=== PATIENT | male | born 1930 | race Caucasian/White ===

== ENCOUNTER → 2018-09-23 | Outpatient (CLI) | payer MEDICARE ==
--- NOTE | 2018-09-23 17:18 | MR ---
EXAMINATION TYPE: MR brain wo/w con DATE OF EXAM: 09/23/2018 COMPARISON: Prior MR brain 05/03/2011 HISTORY: Memory loss TECHNIQUE: Multiplanar, multisequence images of the brain and brainstem is performed without and with IV contras t, utilizing 7 mL intravenous Gadavist . Fast brain protocol utilized due to patient's condition. FINDINGS: Diffusion weighted images demonstrate no evidence of a recent infarct or other diffusion ab normality. There is no extra-axial fluid collection. There has been progression in confluent and sc attered hyperintensity in the periventricular, subcortical and juxtacortical white matter as compared to prior exam. There are too numerous to count lesions present. The ventricular system and cisternal spaces are normal in size and appearance. The brain volume is age appropriate. Midline structures demonstrate normal morphology. The craniocervical junction appears within normal limits. Post contrast images demonstrate no abnormal enhancement. The dural venous sinuses appear pa tent. The visualized sinuses are remarkable for mucoperiosteal thickening in the ethmoid air cells, m axillary sinus and frontal and sphenoid sinuses. And the globes are intact. IMPRESSION: There is progression in white matter signal changes. Findings may be due to chronic small vessel ischemia.
[2018-09-24 03:09] LABS: Folate, Serum 12.6 ng/mL
[2018-09-24 10:06] LABS: Lyme IgG/IgM 0.1 Index
== END | disposition home or self-care (01) ==
LOC: RADMRIMAIN 15:42
PROVIDERS: ATTEND Psychiatry & Neurology Neurology
DX: R90.89 Other abnormal findings on diagnostic imaging of central nervous system (principal); R41.3 Other amnesia; C71.9 Malignant neoplasm of brain, unspecified
CPT/HCPCS: 82746; 86618; 70553; A9585; 82565; 84520

== ENCOUNTER 2019-11-14 15:53 | Observation (INO) | payer MEDICARE, BC ==
--- NOTE | 2019-11-14 16:32 | ED ---
General Adult HPI - General Chief complaint: Syncope Stated complaint: fall Time Seen by Provider: 11/14/19 16:02 Source: patient, family Mode of arrival: ambulatory Limitations: physical limitation - History of Present Illness Initial comments: Dictation was produced using [employer] dictation software. please excuse any grammatical, word or spelling errors. This patient was cared for during a federal and state declared state of emergency secondary to Covid 19 Chief Complaint: 89-year-old male past medical history of hypertension, dementia presents with syncope. History of Present Illness: An 89-year-old male presents after episode of syncope. Patient had one such episode in the past of syncope. Patient states that he was well prior with neighbors when he started to feel lightheaded. He went to sit down. Next thing he remembers he is woken up by his friends. Patient states he went for a second walk today when he usually only goes for long walk. Patient has any trauma. He was unconscious for less than 1 minute. Patient was not noted to be confused. Patient states he feels well right now. He has no chest pain shortness of breath at this time. He had one such episode of syncope several years ago according to the daughter. Daughter is concerned about his hemoglobin levels because he has history of anemia. The ROS documented in this emergency department record has been reviewed and confirmed by me. Those systems with pertinent positive or negative responses have been documented in the HPI. All other systems are other negative and/or noncontributory. PHYSICAL EXAM: General Impression: Alert and oriented x3, not in acute distress HEENT: Normocephalic atraumatic, extra-ocular movements intact, pupils equal and reactive to light bilaterally, mucous membranes moist. Cardiovascular: Heart regular rate and rhythm Chest: Able to complete full sentences, no retractions, no tachypnea Abdomen: Bowel sounds present, abdomen soft, non-tender, non-distended, no organomegaly Musculoskeletal: Pulses present and equal in all extremities, no peripheral edema Motor: no focal deficits noted Neurological: CN II-XII grossly intact, no focal motor or sensory deficits noted Skin: Intact with no visualized rashes Psych: Normal affect and mood ED course: 89-year-old male presents with syncope. Vital signs upon arrival shows blood pressure 187/70, respiratory signs within acceptable limits. Patient is well-appearing at bedside. Daughter reports that he does take Xarelto and multiple antihypertensive medications. Laboratory evaluation obtained. CBC unremarkable. Coag panel unremarkable. Metabolic panel shows sodium 129. Patient hypocalcemia with the ionized calcium of 4.4. Considering patient's lab abnormalities believe the patient has metabolic cause for his syncope. Patient given intravenous fluids, and calcium. Patient be admitted with consultation to cardiology. Patient will be admitted to Dr. Barry's service. EKG interpretation: Ventricular rate 63, normal sinus rhythm,. Interval 200, QRS 108, QTC 427. No MA prolongation, no QTC prolongation, no ST or T-wave changes noted. Overall, this EKG is unremarkable - Related Data Home Medications Medication Instructions Recorded Confirmed Aspirin 81 mg PO DAILY 01/02/15 01/02/15 Allergies Allergy/AdvReac Type Severity Reaction Status Date / Time No Known Allergies Allergy Verified 11/14/19 16:00 Review of Systems ROS Statement: Those systems with pertinent positive or pertinent negative responses have been documented in the HPI. ROS Other: All systems not noted in ROS Statement are negative. Past Medical History Past Medical History: Dementia, Hypertension Additional Past Medical History / Comment(s): DVT History of Any Multi-Drug Resistant Organisms: None Reported Past Surgical History: Hernia Repair Past Psychological History: No Psychological Hx Reported Smoking Status: Never smoker Past Alcohol Use History: None Reported Past Drug Use History: None Reported General Exam Limitations: physical limitation Course Vital Signs 11/14/19 15:57 Temperature 98.2 F Pulse Rate 71 Respiratory 18 Rate Blood Pressure 187/70 O2 Sat by Pulse 98 Oximetry Medical Decision Making - Lab Data Result diagrams: 11/14/19 16:45 11/14/19 16:45 Lab Results 11/14/19 11/14/19 11/14/19 Range/Units 16:45 16:45 16:45 WBC 8.1 (3.8-10.6) k/uL RBC 4.07 L (4.30-5.90) m/uL Hgb 12.4 L (13.0-17.5) gm/dL Hct 37.3 L (39.0-53.0) % MCV 91.7 (80.0-100.0) fL MCH 30.5 (25.0-35.0) pg MCHC 33.3 (31.0-37.0) g/dL RDW 13.2 (11.5-15.5) % Plt Count 222 (150-450) k/uL Neutrophils % 82 % Lymphocytes % 10 % Monocytes % 4 % Eosinophils % 2 % Basophils % 1 % Neutrophils # 6.7 (1.3-7.7) k/uL Lymphocytes # 0.8 L (1.0-4.8) k/uL Monocytes # 0.3 (0-1.0) k/uL Eosinophils # 0.1 (0-0.7) k/uL Basophils # 0.0 (0-0.2) k/uL PT 11.7 (9.0-12.0) sec INR 1.2 H (<1.2) APTT 29.9 (22.0-30.0) sec Sodium 129 L (137-145) mmol/L Potassium 5.0 (3.5-5.1) mmol/L Chloride 97 L (98-107) mmol/L Carbon Dioxide 23 (22-30) mmol/L Anion Gap 9 mmol/L BUN 16 (9-20) mg/dL Creatinine 0.65 L (0.66-1.25) mg/dL Est GFR (CKD-EPI)AfAm >90 (>60 ml/min/1.73 sqM) Est GFR (CKD-EPI)NonAf 88 (>60 ml/min/1.73 sqM) Glucose 125 H (74-99) mg/dL POC Glucose (mg/dL) (75-99) mg/dL POC Glu Manager Division ID Plasma Lactic Acid Andrade (0.7-2.0) mmol/L Calcium 8.8 (8.4-10.2) mg/dL Ionized Calcium Esperanza 4.4 L (4.5-5.3) mg/dL Magnesium 1.9 (1.6-2.3) mg/dL Total Bilirubin 0.9 (0.2-1.3) mg/dL AST 41 (17-59) U/L ALT 15 (4-49) U/L Alkaline Phosphatase 39 (38-126) U/L Troponin I (0.000-0.034) ng/mL Total Protein 7.1 (6.3-8.2) g/dL Albumin 4.2 (3.5-5.0) g/dL 11/14/19 11/14/19 11/14/19 Range/Units 16:45 16:45 17:05 WBC (3.8-10.6) k/uL RBC (4.30-5.90) m/uL Hgb (13.0-17.5) gm/dL Hct (39.0-53.0) % MCV (80.0-100.0) fL MCH (25.0-35.0) pg MCHC (31.0-37.0) g/dL RDW (11.5-15.5) % Plt Count (150-450) k/uL Neutrophils % % Lymphocytes % % Monocytes % % Eosinophils % % Basophils % % Neutrophils # (1.3-7.7) k/uL Lymphocytes # (1.0-4.8) k/uL Monocytes # (0-1.0) k/uL Eosinophils # (0-0.7) k/uL Basophils # (0-0.2) k/uL PT (9.0-12.0) sec INR (<1.2) APTT (22.0-30.0) sec Sodium (137-145) mmol/L Potassium (3.5-5.1) mmol/L Chloride (98-107) mmol/L Carbon Dioxide (22-30) mmol/L Anion Gap mmol/L BUN (9-20) mg/dL Creatinine (0.66-1.25) mg/dL Est GFR (CKD-EPI)AfAm (>60 ml/min/1.73 sqM) Est GFR (CKD-EPI)NonAf (>60 ml/min/1.73 sqM) Glucose (74-99) mg/dL POC Glucose (mg/dL) 123 H (75-99) mg/dL POC Glu Manager Division ID Nena Lee Plasma Lactic Acid Andrade 1.3 (0.7-2.0) mmol/L Calcium (8.4-10.2) mg/dL Ionized Calcium Esperanza (4.5-5.3) mg/dL Magnesium (1.6-2.3) mg/dL Total Bilirubin (0.2-1.3) mg/dL AST (17-59) U/L ALT (4-49) U/L Alkaline Phosphatase (38-126) U/L Troponin I <0.012 (0.000-0.034) ng/mL Total Protein (6.3-8.2) g/dL Albumin (3.5-5.0) g/dL Disposition Clinical Impression: Syncope Disposition: ADMITTED IP TO THIS HOSP Condition: Fair Referrals: Sharlene Dawn MD [Primary Care Provider] - 1-2 days Decision Time: 18:13
[2019-11-14 16:56] LABS: Basophils % (A) 1 %; Eosinophils # (A) 0.1 k/uL (0-0.7); Eosinophils % (A) 2 %; HCT 37.3 % (39.0-53.0); HGB 12.4 gm/dL (13.0-17.5); Lymphocytes # (A) 0.8 k/uL (1.0-4.8); Lymphocytes % (A) 10 %; MCH 30.5 pg (25.0-35.0); MCHC 33.3 g/dL (31.0-37.0); MCV 91.7 fL (80.0-100.0); Mean Platelet Volume 7.3; Monocytes # (A) 0.3 k/uL (0-1.0); Monocytes % (A) 4 %; Neutrophils # (A) 6.7 k/uL (1.3-7.7); Neutrophils % (A) 82 %; Platelet Count 222 k/uL (150-450); RBC 4.07 m/uL (4.30-5.90); RDW 13.2 % (11.5-15.5); WBC 8.1 k/uL (3.8-10.6)
[2019-11-14 17:01] LABS: Ionized Calcium 4.4 mg/dL (4.5-5.3)
[2019-11-14 17:10] LABS: ALT 15 U/L (4-49); AST 41 U/L (17-59); African American GFR (CKD) >90 (>60 ml/min/1.73 sqM); Albumin 4.2 g/dL (3.5-5.0); Alkaline Phosphatase 39 U/L (38-126); Anion Gap 9 mmol/L; Blood Urea Nitrogen 16 mg/dL (9-20); Calcium 8.8 mg/dL (8.4-10.2); Carbon Dioxide 23 mmol/L (22-30); Chloride 97 mmol/L (98-107); Glucose 125 mg/dL (74-99); Magnesium 1.9 mg/dL (1.6-2.3); Non-African American GFR(CKD) 88 (>60 ml/min/1.73 sqM); Sodium 129 mmol/L (137-145); Total Bilirubin 0.9 mg/dL (0.2-1.3); Total Protein 7.1 g/dL (6.3-8.2)
--- NOTE | 2019-11-14 17:15 | XR ---
EXAMINATION TYPE: XR chest 2V DATE OF EXAM: 11/14/2019 COMPARISON: None HISTORY: 89-year-old male with syncope TECHNIQUE: PA and lateral views FINDINGS: Heart normal size. Mild elongation thoracic aorta. Tiny calcified granulomas left apex. Mild hyperinf lation. No consolidation or pleural effusion seen. IMPRESSION: COPD. No acute cardiopulmonary process.
[2019-11-14 17:23] LABS: INR 1.2 (<1.2); Partial Thromboplastin Time 29.9 sec (22.0-30.0); Prothrombin Time 11.7 sec (9.0-12.0)
[2019-11-14 17:25] LABS: Glucose,Whole Blood 123 mg/dL (75-99)
[2019-11-14] MEDS ORDERED: ACETAMINOPHEN TAB 325 MG TAB PO PRN (18:09)
[2019-11-14] MEDS ORDERED: ONDANSETRON 4 MG/2 ML VIAL IVP PRN (18:09)
[2019-11-14] MEDS ORDERED: NALOXONE 0.4 MG/ML 1 ML VIAL IV PRN (18:09)
[2019-11-14] MEDS ORDERED: CALCIUM GLUCONATE 1 GM in SODIUM CHLORIDE 0.9% 100 ML IVPB ONE (18:11)
[2019-11-14] MEDS: SODIUM CHLORIDE 0.9% 1,000 ML IV SCH (18:32)
[2019-11-14] MEDS ORDERED: LABETALOL 5 MG/ML VIAL MDV IVP STA (18:52)
--- NOTE | 2019-11-14 20:03 | CT ---
EXAMINATION TYPE: CT brain wo con DATE OF EXAM: 11/14/2019 COMPARISON: Correlation MRI 09/23/2018 HISTORY: 89-year-old male syncope TECHNIQUE: Examination was done in axial plane without intravenous contrast. Coronal and sagittal r econstructions performed. CT DLP: 1141.4 mGycm Automated exposure control for dose reduction was used. FINDINGS: There is no evidence of acute intracranial hemorrhage, acute ischemic changes, mass, mass-effect, or extra-axial fluid collection. There is no effacement of cerebral sulci or basal subarachnoid cister ns. There is no hydrocephalus. There is no midline shift. Berrios-white matter distinction is preserv ed. Moderate confluent white matter hypodensities in both cerebral hemispheres. Old lacunar infarct right basal ganglia. Other scattered calcifications within the bilateral carotid siphons and proximal V4 v ertebral arteries. Partially empty sella. Orbits and globes are intact. Mastoid air cells are well pneumatized. Moderate to severe mucosal thic kening with some additional frothy opacification in the left sphenoid sinus. Moderate mucosal thicken ing along the posterior farley of frontal sinuses. IMPRESSION: 1. Moderate confluent changes of chronic small vessel ischemic disease. Otherwise, no acute intracran ial abnormality seen. 2. Possible acute on chronic left sphenoid sinus disease. Clinically correlate.
[2019-11-14] MEDS: DOXAZOSIN 4 MG TAB PO SCH (23:39)
[2019-11-15 06:33] LABS: Basophils % (A) 1 %; Eosinophils # (A) 0.2 k/uL (0-0.7); Eosinophils % (A) 3 %; HCT 33.7 % (39.0-53.0); Lymphocytes # (A) 1.3 k/uL (1.0-4.8); Lymphocytes % (A) 22 %; MCH 30.1 pg (25.0-35.0); MCHC 32.5 g/dL (31.0-37.0); MCV 92.7 fL (80.0-100.0); Mean Platelet Volume 7.3; Monocytes # (A) 0.4 k/uL (0-1.0); Monocytes % (A) 7 %; Neutrophils # (A) 3.8 k/uL (1.3-7.7); Neutrophils % (A) 64 %; Platelet Count 215 k/uL (150-450); RBC 3.64 m/uL (4.30-5.90); RDW 13.1 % (11.5-15.5); WBC 5.8 k/uL (3.8-10.6)
[2019-11-15 06:54] LABS: ALT 12 U/L (4-49); AST 22 U/L (17-59); African American GFR (CKD) >90 (>60 ml/min/1.73 sqM); Albumin 3.5 g/dL (3.5-5.0); Alkaline Phosphatase 27 U/L (38-126); Anion Gap 8 mmol/L; Blood Urea Nitrogen 12 mg/dL (9-20); Calcium 8.6 mg/dL (8.4-10.2); Carbon Dioxide 27 mmol/L (22-30); Chloride 97 mmol/L (98-107); Glucose 88 mg/dL (74-99); Non-African American GFR(CKD) 88 (>60 ml/min/1.73 sqM); Potassium 3.8 mmol/L (3.5-5.1); Sodium 132 mmol/L (137-145); Total Bilirubin 0.4 mg/dL (0.2-1.3); Total Protein 6.1 g/dL (6.3-8.2)
[2019-11-15] MEDS: MEMANTINE 10 MG TAB PO SCH (07:51)
[2019-11-15] MEDS: SODIUM CHLORIDE 0.9% 1,000 ML IV SCH (07:52)
[2019-11-15] MEDS: DONEPEZIL 5 MG TAB PO SCH (07:52)
[2019-11-15] MEDS: RIVAROXABAN 20 MG TAB PO SCH (07:52)
[2019-11-15] MEDS ORDERED: IRON PO SCH (09:00)
[2019-11-15] MEDS ORDERED: VITAMIN D3 PO SCH (09:00)
--- NOTE | 2019-11-15 11:34 | P.CRDCN ---
History of Present Illness Consult date: 11/15/19 Consult reason: other (syncope) History of present illness: This is an 89-year-old male. He denies having any cardiac history does not follow with a dewaterer operator. He has history of DVT, hypertension, anemia, dementia. Patient states that he took a walk outside and then went for second walk with his neighbors. He had to sit down at a picnic table and ended up passing out briefly. EMS was called and he was brought into [facility] emergency center for evaluation. He denies ever having a history of syncope in the past. He denies having any chest pain, shortness of breath and no lightheadedness or dizziness with this episode. He denies any abdominal symptoms of nausea or vomiting. EKG was a sinus rhythm with no acute ST-T wave changes. Initial blood pressure 187/70 with heart rate of 71. Hemoglobin 12.4. Sodium 129, potassium 5.0, chloride 97, CO2 23, BUN 16 and creatinine 0.65 blood sugar 125. Troponin 0.012. Chest x-ray reveals COPD area acute cardio pulmonary process. CAT scan of the brain showed moderate confluent changes of chronic small vessel ischemic disease. No acute intracranial abnormality. Possible sphenoid sinus disease. At the time of my evaluation: Review Of Systems: Constitutional: No fever, no chills, no night sweats. No weight change. No weakness, fatigue or lethargy. No daytime sleepiness. EENT: No headache. No blurred vision or double vision, no loss of vision. No loss of Hearing, no ringing in the ears, no dizziness. No nasal drainage or congestion. No epistaxis. No sore throat. Lungs: No shortness of breath, cough, no sputum production. No wheezing. Cardiovascular: No chest pain, no lower extremity edema. No palpitations. No paroxysmal nocturnal dyspnea. No orthopnea. No lightheadedness or dizziness. No syncopal episodes. Abdominal: No abdominal pain. No nausea, vomiting. No diarrhea. No constipation. No bloody or tarry stools.. No loss of appetite. Genitourinary: No dysuria, increased frequency, urgency. No urinary retention. Musculoskeletal: No myalgias. No muscle weakness, no gait dysfunction, no frequent falls. No back pain. No neck pain. Integumentary: No wounds, no lesions. No rash or pruritus. No unusual bruising. No change in hair or nails. Neurologic: No aphasia. No facial droop. No change in mentation. No head injury. No headache. No paralysis. No paresthesia. Psychiatric: No depression. No anxiety. No mood swings. Endocrine: No abnormal blood sugars. No weight change. No excessive sweating or thirst. No cold intolerance. No weight change. Gen: This is an 89-year-old male. Patient is sitting in recliner and appears to be comfortable and in no acute distress. VS: Afebrile, heart rate 55, blood pressure 187/64, pulse ox 96% on room air. Heart rate has been running mostly in the 50s. Patient has noted to have very brief pauses on arts administrator. HEENT: Head is atraumatic, normocephalic. Pupils equal, round. Sclerae is anicteric. NECK: Supple. No JVD. No lymphadenopathy. No thyromegaly. LUNGS: Clear to auscultation. No wheezes or rhonchi. No intercostal retractions. HEART: Regular rate and rhythm. No murmur. ABDOMEN: Soft. Bowel sounds are present. No masses. No tenderness. EXTREMITIES: No pedal edema. No calf tenderness. NEUROLOGICAL: Patient is awake, alert and oriented x3. Cranial nerves 2 through 12 are grossly intact. Assessment: Syncopal episode of unclear etiology, possibly secondary to dehydration Hypertension Chronic anemia History DVT Dementia Plan: Obtain 2-D echocardiogram and Doppler study to assess cardiac structure and function Carotid ultrasound study Discontinue hydrochlorothiazide and start patient on Norvasc 5 mg twice daily Increase oral fluid intake Check orthostatic vital signs Obtain TSH and free T4 Continue Xarelto Continue arts administrator overnight and possible discharge tomorrow Further recommendations based on patient's clinical course Thank you kindly for this consultation Nurse practitioner note has been reviewed, I agree with documented findings and plan of care. Patient was seen and examined. Past Medical History Past Medical History: Dementia, Hypertension Additional Past Medical History / Comment(s): DVT History of Any Multi-Drug Resistant Organisms: None Reported Past Surgical History: Hernia Repair Past Anesthesia/Blood Transfusion Reactions: No Reported Reaction Past Psychological History: No Psychological Hx Reported Smoking Status: Never smoker Past Alcohol Use History: Daily Additional Past Alcohol Use History / Comment(s): drinls 1 beer a day. Past Drug Use History: None Reported Medications and Allergies Home Medications Medication Instructions Recorded Confirmed Type Donepezil [Aricept] 5 mg PO QAM 11/14/19 11/14/19 History Doxazosin [Cardura] 10 mg PO HS 11/14/19 11/14/19 History Hydrochlorothiazide 12.5 mg PO QAM 11/14/19 11/14/19 History Iron (Unknown Dose) 1 tab PO QAM 11/14/19 11/14/19 History Memantine [Namenda] 10 mg PO QAM 11/14/19 11/14/19 History Rivaroxaban [Xarelto] 20 mg PO QAM 11/14/19 11/14/19 History Vitamin D3 (Unknown Dose) 1 tab PO QAM 11/14/19 11/14/19 History Allergies Allergy/AdvReac Type Severity Reaction Status Date / Time No Known Allergies Allergy Verified 11/14/19 18:34 Physical Exam Vitals: Vital Signs Temp Pulse Pulse Resp BP BP Pulse Ox 11/15/19 06:13 98.4 F 55 L 12 187/64 96 11/14/19 22:32 97.9 F 67 16 189/71 96 11/14/19 20:05 98.1 F 59 L 19 153/58 98 11/14/19 19:33 165/71 11/14/19 19:08 67 18 166/74 11/14/19 19:00 74 18 205/89 11/14/19 18:38 97.3 F L 70 18 205/89 97 11/14/19 15:57 98.2 F 71 18 187/70 98 Intake and Output 11/14/19 11/15/19 11/15/19 22:59 06:59 14:59 Intake Total 560 Balance 560 Intake: Intake, IV Titration 560 Amount Sodium Chloride 0.9% 1, 560 000 ml @ 70 mls/hr IV . [id number] [facility] Rx#:[id number] Other: Voiding Method Toilet # Voids 2 1 Weight 72.575 kg Results 11/15/19 05:58 11/15/19 05:58 Cardiac Enzymes 11/14/19 11/14/19 11/15/19 Range/Units 16:45 16:45 05:58 AST 41 22 (17-59) U/L Troponin I <0.012 (0.000-0.034) ng/mL Coagulation 11/14/19 Range/Units 16:45 PT 11.7 (9.0-12.0) sec APTT 29.9 (22.0-30.0) sec CBC 11/14/19 11/15/19 Range/Units 16:45 05:58 WBC 8.1 5.8 (3.8-10.6) k/uL RBC 4.07 L 3.64 L (4.30-5.90) m/uL Hgb 12.4 L 11.0 L (13.0-17.5) gm/dL Hct 37.3 L 33.7 L (39.0-53.0) % Plt Count 222 215 (150-450) k/uL Comprehensive Metabolic Panel 11/14/19 11/15/19 Range/Units 16:45 05:58 Sodium 129 L 132 L (137-145) mmol/L Potassium 5.0 3.8 (3.5-5.1) mmol/L Chloride 97 L 97 L (98-107) mmol/L Carbon Dioxide 23 27 (22-30) mmol/L BUN 16 12 (9-20) mg/dL Creatinine 0.65 L 0.64 L (0.66-1.25) mg/dL Glucose 125 H 88 (74-99) mg/dL Calcium 8.8 8.6 (8.4-10.2) mg/dL AST 41 22 (17-59) U/L ALT 15 12 (4-49) U/L Alkaline Phosphatase 39 27 L (38-126) U/L Total Protein 7.1 6.1 L (6.3-8.2) g/dL Albumin 4.2 3.5 (3.5-5.0) g/dL Current Medications Generic Name Dose Route Start Last Admin Trade Name Freq PRN Reason Stop Dose Admin Acetaminophen 650 mg 11/14/19 18:09 Tylenol Tab PO Q6HR PRN Mild Pain or Fever > 100.5 Donepezil HCl 5 mg 11/15/19 09:00 11/15/19 07:52 Aricept PO 5 mg QAM ANGELIKA Administration Doxazosin Mesylate 10 mg 11/14/19 22:45 11/14/19 23:39 Cardura PO 10 mg HS ANGELIKA Administration Sodium Chloride 1,000 mls @ 70 mls/hr 11/14/19 18:15 11/15/19 07:52 Saline 0.9% IV Not Given .[id number] ANGELIKA Memantine 10 mg 11/15/19 09:00 11/15/19 07:51 Namenda PO 10 mg QAM ANGELIKA Administration Naloxone HCl 0.2 mg 11/14/19 18:09 Narcan IV Q2M PRN Opioid Reversal Ondansetron HCl 4 mg 11/14/19 18:09 Zofran IVP Q8HR PRN Nausea And Vomiting Rivaroxaban 20 mg 11/15/19 09:00 11/15/19 07:52 Xarelto PO 20 mg QAM ANGELIKA Administration Intake and Output 11/14/19 11/15/19 11/15/19 22:59 06:59 14:59 Intake Total 560 Balance 560 Intake: Intake, IV Titration 560 Amount Sodium Chloride 0.9% 1, 560 000 ml @ 70 mls/hr IV . [id number] ANGELIKA Rx#:[id number] Other: Voiding Method Toilet # Voids 2 1 Weight 72.575 kg 11/15/19 05:58 11/15/19 05:58
--- NOTE | 2019-11-15 11:49 | US ---
EXAMINATION TYPE: US carotid duplex BILAT DATE OF EXAM: 11/15/2019 COMPARISON: NONE CLINICAL HISTORY: syncope. syncope EXAM MEASUREMENTS: RIGHT: Peak Systolic Velocity (PSV) cm/sec ----- Right CCA: 54.0 ----- Right ICA: 232.4 ----- Right ECA: 214.4 ICA/CCA ratio: 4.3 RIGHT: End Diastole cm/sec ----- Right CCA: 10.4 ----- Right ICA: 15.8 ----- Right ECA: 0.0 LEFT: Peak Systolic Velocity (PSV) cm/sec ----- Left CCA: 95.1 ----- Left ICA: 108.3 ----- Left ECA: 429.0 ICA/CCA ratio: 1.1 LEFT: End Diastole cm/sec ----- Left CCA: 14.4 ----- Left ICA: 21.0 ----- Left ECA: 0.0 VERTEBRALS (direction of flow): Right Vertebral: Antegrade Left Vertebral: Antegrade Rhythm: Normal Severe plaque noted bilateral bifurcations. Increased velocities right ICA and bilateral ECA's IMPRESSION: 1. 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 2. ELEVATED FLOW, BOTH ECAS. Criteria for Assigning % of Stenosis / Diameter reduction (Estimation based on the indirect measurements of the internal carotid artery velocities (ICA PSV). 1. Normal (no stenosis)=ICA PSV < 125 cm/s: ratio < 2.0: ICA EDV<40 cm/s. 2. Less than 50% stenosis=ICA PSV < 125 cm/s: ratio < 2.0: ICA EDV<40 cm/s. 3. 50 to 69% stenosis=ICA PSV of 125 to 230 cm/s: ration 2.0 ? 4.0: ICA EDV 40-100 cm/s. 4. Greater than 70% stenosis to near occlusion= ICA PSV > 230 cm/s: ratio > 4.0: ICA EDV > 100 cm/s. 5. Near occlusion= ICA PSV velocities may be low or undetectable: variable ratio and ICA EDV. 6. Total occlusion=unable to detect flow.
[2019-11-15] MEDS: amLODIPine 5 MG TAB PO SCH ×2 (12:56→20:51)
--- NOTE | 2019-11-15 14:00 | ECHOF ---
Referral Reason:syncope MEASUREMENTS -------- HEIGHT: 167.6 cm WEIGHT: 72.6 kg BP: IVSd: 1.2 cm (0.6 - 1.1) LVIDd: 4.1 cm (3.9 - 5.3) LVPWd: 1.2 cm (0.6 - 1.1) IVSs: 1.6 cm LVIDs: 1.6 cm LVPWs: 1.8 cm LAESV Index (A-L): 24.10 ml/m Ao Diam: 2.8 cm (2.0 - 3.7) AV Cusp: 1.6 cm (1.5 - 2.6) LA Diam: 3.5 cm (2.7 - 3.8) MV EXCURSION: 14.924 mm (> 18.000) MV EF SLOPE: 58 mm/s (70 - 150) EPSS: 0.5 cm MV E Baljinder: 0.74 m/s MV DecT: 249 ms MV A Baljinder: 1.11 m/s MV E/A Ratio: 0.67 AR PHT: 1202 ms RAP: 5.00 mmHg RVSP: 26.04 mmHg FINDINGS -------- Sinus rhythm. This was a technically good study. The left ventricular size is normal. There is mild concentric left ventricular hypertrophy. Overa ll left ventricular systolic function is normal with, an EF between 55 - 60 %. The diastolic fillin g pattern is normal for the age of the patient 10.70. The right ventricle is normal in size. The left atrial size is normal. Normal LA size by volume 22+/-6 ml/m2. The right atrial size is normal. Aortic valve is trileaflet and is mildly thickened. Trace amount of aortic regurgitation. The mitral valve is normal. There is trace mitral regurgitation. The tricuspid valve appears structurally normal. Trace tricuspid regurgitation present. Right joel tricular systolic pressure is normal at < 35 mmHg. There is no pulmonic regurgitation present. The aortic root size is normal. Normal inferior vena cava with normal inspiratory collapse consistent with estimated right atrial pre ssure of 5 mmHg. There is no pericardial effusion. CONCLUSIONS -------- 1. Sinus rhythm. 2. This was a technically good study. 3. The left ventricular size is normal. 4. There is mild concentric left ventricular hypertrophy. 5. Overall left ventricular systolic function is normal with, an EF between 55 - 60 %. 6. The diastolic filling pattern is normal for the age of the patient 10.70 7. The right ventricle is normal in size. 8. The left atrial size is normal. 9. Normal LA size by volume 22+/-6 ml/m2. 10. The right atrial size is normal. 11. Aortic valve is trileaflet and is mildly thickened. 12. Trace amount of aortic regurgitation. 13. The mitral valve is normal. 14. There is trace mitral regurgitation. 15. The tricuspid valve appears structurally normal. 16. Trace tricuspid regurgitation present. 17. Right ventricular systolic pressure is normal at < 35 mmHg. 18. There is no pulmonic regurgitation present. 19. The aortic root size is normal. 20. Normal inferior vena cava with normal inspiratory collapse consistent with estimated right atrial pressure of 5 mmHg. 21. There is no pericardial effusion. CAKE PRESS OPERATOR: Kaylen Gupta RDCS
--- NOTE | 2019-11-15 14:11 | P.HPIM ---
History of Present Illness H&P Date: 11/15/19 Giancarlo Gore is an 89-year-old male who presented to [facility] after having a syncopal episode patient states that he went for a walk with a friend he was sitting at the picnic table when he suddenly lost consciousness he estimates that he was unconscious for about 1 minute patient denies any symptoms of dizziness or lightheadedness chest pain or shortness of breath before or after the syncopal episode. EMS were called and patient was brought in to [facility] emergency room, he was evaluated in the emergency room, his temperature was 98.2 pulse 71 respiration 18 blood pressure 187/70 pulse ox was 98% on room air, his labs were significant for sodium of 129, glucose 125 otherwise no significant abnormality EKG was done and revealed a normal sinus rhythm with a heart rate of 63 without any abnormality. Patient was admitted to telemetry floor, echocardiogram and carotid Doppler were ordered, cardiology consultation was requested. Patient has known history of hypertension he has a previous history of DVT and history of dementia he denies any history of cardiac disease or history of syncope in the past. Past Medical History Past Medical History: Dementia, Hypertension Additional Past Medical History / Comment(s): DVT History of Any Multi-Drug Resistant Organisms: None Reported Past Surgical History: Hernia Repair Past Anesthesia/Blood Transfusion Reactions: No Reported Reaction Past Psychological History: No Psychological Hx Reported Smoking Status: Never smoker Past Alcohol Use History: Daily Additional Past Alcohol Use History / Comment(s): drinls 1 beer a day. Past Drug Use History: None Reported Medications and Allergies Home Medications Medication Instructions Recorded Confirmed Type Donepezil [Aricept] 5 mg PO QAM 11/14/19 11/14/19 History Doxazosin [Cardura] 10 mg PO HS 11/14/19 11/14/19 History Hydrochlorothiazide 12.5 mg PO QAM 11/14/19 11/14/19 History Iron (Unknown Dose) 1 tab PO QAM 11/14/19 11/14/19 History Memantine [Namenda] 10 mg PO QAM 11/14/19 11/14/19 History Rivaroxaban [Xarelto] 20 mg PO QAM 11/14/19 11/14/19 History Vitamin D3 (Unknown Dose) 1 tab PO QAM 11/14/19 11/14/19 History Allergies Allergy/AdvReac Type Severity Reaction Status Date / Time No Known Allergies Allergy Verified 11/14/19 18:34 Physical Exam Vitals: Vital Signs Temp Pulse Pulse Resp BP BP Pulse Ox 11/15/19 06:13 98.4 F 55 L 12 187/64 96 11/14/19 22:32 97.9 F 67 16 189/71 96 11/14/19 20:05 98.1 F 59 L 19 153/58 98 11/14/19 19:33 165/71 11/14/19 19:08 67 18 166/74 11/14/19 19:00 74 18 205/89 11/14/19 18:38 97.3 F L 70 18 205/89 97 11/14/19 15:57 98.2 F 71 18 187/70 98 Intake and Output 11/14/19 11/15/19 11/15/19 22:59 06:59 14:59 Intake Total 560 Balance 560 Intake: Intake, IV Titration 560 Amount Sodium Chloride 0.9% 1, 560 000 ml @ 70 mls/hr IV . [id number] [facility] Rx#:[id number] Other: Voiding Method Toilet # Voids 2 1 1 Weight 72.575 kg In general patient is alert and oriented 3 in no apparent distress HEENT head normocephalic and atraumatic Neck is supple no JVD no goiter no lymphadenopathy Chest exam reveals a few scattered rhonchi no wheezing Cardiac exam reveals regular heart sounds no gallops no murmurs Abdomen is soft nontender no organomegaly with normal bowel sounds Extremity exam reveals no edema no cyanosis or clubbing Neurological examination reveals no gross focal deficit Results CBC & Chem 7: 11/15/19 05:58 11/15/19 05:58 Labs: Abnormal Lab Results - Last 24 Hours (Table) 11/14/19 11/14/19 11/14/19 Range/Units 16:45 16:45 16:45 RBC 4.07 L (4.30-5.90) m/uL Hgb 12.4 L (13.0-17.5) gm/dL Hct 37.3 L (39.0-53.0) % Lymphocytes # 0.8 L (1.0-4.8) k/uL INR 1.2 H (<1.2) Sodium 129 L (137-145) mmol/L Chloride 97 L (98-107) mmol/L Creatinine 0.65 L (0.66-1.25) mg/dL Glucose 125 H (74-99) mg/dL POC Glucose (mg/dL) (75-99) mg/dL Ionized Calcium Esperanza 4.4 L (4.5-5.3) mg/dL Alkaline Phosphatase (38-126) U/L Total Protein (6.3-8.2) g/dL 11/14/19 11/15/19 11/15/19 Range/Units 17:05 05:58 05:58 RBC 3.64 L (4.30-5.90) m/uL Hgb 11.0 L (13.0-17.5) gm/dL Hct 33.7 L (39.0-53.0) % Lymphocytes # (1.0-4.8) k/uL INR (<1.2) Sodium 132 L (137-145) mmol/L Chloride 97 L (98-107) mmol/L Creatinine 0.64 L (0.66-1.25) mg/dL Glucose (74-99) mg/dL POC Glucose (mg/dL) 123 H (75-99) mg/dL Ionized Calcium Esperanza (4.5-5.3) mg/dL Alkaline Phosphatase 27 L (38-126) U/L Total Protein 6.1 L (6.3-8.2) g/dL Thrombosis Risk Factor Assmnt - Choose All That Apply Any of the Below Risk Factors Present?: No Other Risk Factors: Yes Each Risk Factor Represents 3 Points: Age 75 years or older, History of DVT/PE Thrombosis Risk Factor Assessment Total Risk Factor Score: 6 Thrombosis Risk Factor Assessment Level: High Risk Assessment and Plan Plan: #1 syncopal episode, patient is admitted to telemetry floor echocardiogram and carotid Doppler were ordered cardiology consultation requested #2 hyponatremia sodium 129, patient was on hydrochlorothiazide this was held #3 hypertension not well controlled, Norvasc 5 mg by mouth daily was added to regimen #4 previous history of DVT, no clinical evidence of DVT or PE at this time. Patient is maintained on Xarelto 20 mg daily continue. #5 underlying history of dementia, maintained on Aricept 5 mg daily continue. At this time echocardiogram and carotid Doppler were ordered, results are pending Will monitor on telemetry floor still tomorrow If stable and testing results are normal patient can be discharged
[2019-11-15] MEDS: DOXAZOSIN 4 MG TAB PO SCH (20:51)
[2019-11-15 23:04] VITALS: RESP 16
[2019-11-16] MEDS: SODIUM CHLORIDE 0.9% 1,000 ML IV SCH (05:07)
[2019-11-16] MEDS: amLODIPine 5 MG TAB PO SCH (09:34)
[2019-11-16] MEDS: DONEPEZIL 5 MG TAB PO SCH (09:34)
[2019-11-16] MEDS: RIVAROXABAN 20 MG TAB PO SCH (09:35)
[2019-11-16] MEDS: MEMANTINE 10 MG TAB PO SCH (09:35)
[2019-11-16] MEDS: DOXAZOSIN 4 MG TAB PO SCH (09:35)
--- NOTE | 2019-11-16 11:24 | P.PN ---
Subjective Progress Note Date: 11/16/19 This is an 89-year-old male. 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 He has history of DVT, hypertension, anemia, dementia. Patient states that he took a walk outside and then went for second walk with his neighbors. He had to sit down at a picnic table and ended up passing out briefly. EMS was called and he was brought into [facility] emergency center for evaluation. He denies ever having a history of syncope in the past. He denies having any chest pain, shortness of breath and no lightheadedness or dizziness with this episode. He denies any abdominal symptoms of nausea or vomiting. EKG was a sinus rhythm with no acute ST-T wave changes. Initial blood pressure 187/70 with heart rate of 71. Hemoglobin 12.4. Sodium 129, potassium 5.0, chloride 97, CO2 23, BUN 16 and creatinine 0.65 blood sugar 125. Troponin 0.012. Chest x-ray reveals COPD area acute cardio pulmonary process. CAT scan of the brain showed moderate confluent changes of chronic small vessel ischemic disease. No acute intracranial abnormality. Possible sphenoid sinus disease. 11/15: Echocardiogram reveals EF of 55-60%, trace mitral regurgitation, trace tricuspid regurgitation. Carotid ultrasound reveals greater than 70% stenosis of the right ICA. monitoring specialist is sinus rhythm in the 50s and 60s. TSH 3.780. Patient has had no further episodes of syncope. Orthostatic vital signs of been negative. Patient is cleared from cardiology for discharge home with recommendations for CTA of the carotid arteries as an outpatient. Patient will have follow-up with Dr. ALAYNA Dawson in the office. Gen: This is an 89-year-old male. Patient is sitting in recliner and appears to be comfortable and in no acute distress. VS: Afebrile, heart rate 59, blood pressure 179/72, pulse ox 96% on room air. HEENT: Head is atraumatic, normocephalic. Pupils equal, round. Sclerae is anicteric. NECK: Supple. No JVD. No lymphadenopathy. No thyromegaly. LUNGS: Clear to auscultation. No wheezes or rhonchi. No intercostal retractions. HEART: Regular rate and rhythm. No murmur. ABDOMEN: Soft. Bowel sounds are present. No masses. No tenderness. EXTREMITIES: No pedal edema. No calf tenderness. NEUROLOGICAL: Patient is awake, alert and oriented x3. Cranial nerves 2 through 12 are grossly intact. 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 ALAYNA Dawson in one to 2 weeks CTA carotid arteries as an outpatient Nurse practitioner note has been reviewed, I agree with documented findings and plan of care. Patient was seen and examined. Objective - Vital Signs Vital signs: Vital Signs Temp 98.2 F 11/16/19 05:22 Pulse 59 L 11/16/19 05:22 Resp 16 11/16/19 05:22 BP 179/72 11/16/19 05:22 Pulse Ox 96 11/16/19 05:22 Intake & Output 11/15/19 11/16/19 11/16/19 18:59 06:59 18:59 Intake Total 2380 590 Balance 2380 590 Intake: Intake, IV Titration 700 Amount Sodium Chloride 0.9% 1, 700 000 ml @ 70 mls/hr IV . [id number] [facility] Rx#:[id number] Oral 1680 590 Other: Voiding Method Toilet Toilet # Voids 4 3 - Labs CBC & Chem 7: 11/15/19 05:58 11/15/19 05:58
[2019-11-16 11:35] VITALS: BP 164/81; TEMP 98.4
--- NOTE | 2019-11-16 12:28 | P.DS ---
Providers Date of admission: 11/14/19 18:09 Attending physician: Jose Barry Consults: 11/14/19 18:10 Consult Physician Routine Consulting Provider: Ji Gupta Consult Reason/Comments: syncope Do you want consulting provider notified?: Yes Primary care physician: Sharlene Dawn Hospital Course: Diagnoses on discharge: #1 syncopal episode, patient is admitted to telemetry floor echocardiogram and carotid Doppler were ordered cardiology consultation requested #2 Dehydration with hyponatremia sodium 129, patient was on hydrochlorothiazide this was discontinued during this admission. #3 Hypertension not well controlled, Norvasc 5 mg by mouth BID was added to regimen #4 previous history of DVT, no clinical evidence of DVT or PE at this time. Patient is maintained on Xarelto 15 mg daily continue. #5 underlying history of dementia, maintained on Aricept 5 mg daily continue. 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 Hospital course: Giancarlo Gore is an 89-year-old male who presented to [facility] after having a syncopal episode patient states that he went for a walk with a friend he was sitting at the picnic table when he suddenly lost consciousness he estimates that he was unconscious for about 1 minute patient denies any symptoms of dizziness or lightheadedness chest pain or shortness of breath before or after the syncopal episode. EMS were called and patient was brought in to [facility] emergency room, he was evaluated in the emergency room, his temperature was 98.2 pulse 71 respiration 18 blood pressure 187/70 pulse ox was 98% on room air, his labs were significant for sodium of 129, glucose 125 otherwise no significant abnormality EKG was done and revealed a normal sinus rhythm with a heart rate of 63 without any abnormality. Patient was admitted to telemetry floor, echocardiogram and carotid Doppler were ordered, cardiology consultation was requested. Patient has known history of hypertension he has a previous history of DVT and history of dementia he denies any history of cardiac disease or history of syncope in the past. On 11/16/2019 patient was seen and examined on the telemetry floor, he is alert and oriented 3 in no apparent distress, no new episodes of syncope, no symptoms of dizziness chest pain shortness of breath or lightheadedness, patient is eager to go home. Testing during this admission revealed evidence of dehydration was hyponatremia sodium 129 which improved with IV fluid and discontinuation of hydrochlorothiazide. Blood pressure was quite elevated and Norvasc 5 mg twice daily was added to his regimen, echocardiogram was done and revealed normal left ventricular systolic function with ejection fraction of 55-60% and no significant valvular disease. Carotid Doppler was done and revealed evidence of 70% stenosis in the right internal carotid artery this will need to be further followed and investigated as outpatient. Plan for discharge today, follow-up with primary care physician within one week, follow-up with cardiology Dr. ALAYNA Dawson in 2 weeks. Patient Condition at Discharge: Fair Plan - Discharge Summary Discharge Rx Participant: No New Discharge Prescriptions: New Aspirin EC [Ecotrin Low Dose] 81 mg PO DAILY #30 tablet. Rivaroxaban [Xarelto] 15 mg PO DAILY #30 tab amLODIPine [Norvasc] 5 mg PO BID tab Continue Iron (Unknown Dose) 1 tab PO QAM Vitamin D3 (Unknown Dose) 1 tab PO QAM Donepezil [Aricept] 5 mg PO QAM Doxazosin [Cardura] 10 mg PO HS Memantine [Namenda] 10 mg PO QAM Discontinued Hydrochlorothiazide 12.5 mg PO QAM Rivaroxaban [Xarelto] 20 mg PO QAM Discharge Medication List Donepezil [Aricept] 5 mg PO QAM 11/14/19 [History] Doxazosin [Cardura] 10 mg PO HS 11/14/19 [History] Iron (Unknown Dose) 1 tab PO QAM 11/14/19 [History] Memantine [Namenda] 10 mg PO QAM 11/14/19 [History] Vitamin D3 (Unknown Dose) 1 tab PO QAM 11/14/19 [History] Aspirin EC [Ecotrin Low Dose] 81 mg PO DAILY #30 tablet. 11/16/19 [Rx] Rivaroxaban [Xarelto] 15 mg PO DAILY #30 tab 11/16/19 [Rx] amLODIPine [Norvasc] 5 mg PO BID tab 11/16/19 [Rx] Follow up Appointment(s)/Referral(s): Deon Dawson MD [STAFF PHYSICIAN] - 1 Week Sharlene Dawn MD [Primary Care Provider] - 1-2 days
[2019-11-16 13:16] VITALS: PULSE 65
== END 2019-11-16 15:12 | disposition home or self-care (01) ==
LOC: EC 15:53 → 5NMEDONC 18:09
PROVIDERS: ADMIT Internal Medicine; ATTEND Internal Medicine
DX: R55 Syncope and collapse (principal); E87.1 Hypo-osmolality and hyponatremia; E86.0 Dehydration; E83.51 Hypocalcemia; F03.90 Unspecified dementia, unspecified severity, without behavioral disturbance, psychotic disturbance, mood disturbance, and anxiety; I10 Essential (primary) hypertension; I65.21 Occlusion and stenosis of right carotid artery; J44.9 Chronic obstructive pulmonary disease, unspecified; D64.9 Anemia, unspecified; Z79.01 Long term (current) use of anticoagulants; Z79.82 Long term (current) use of aspirin; Z86.718 Personal history of other venous thrombosis and embolism; Z79.899 Other long term (current) drug therapy; Z72.89 Other problems related to lifestyle
CPT/HCPCS: 96365; 96375; 99285; 36415; 93005; 93306; 80053 ×2; 84443; 82330; 83605; 83735; 84484; 85025 ×2; 85610; 85730; 71046; 93880; 70450; G0378 ×3; J0610

== ENCOUNTER → 2019-12-29 | Outpatient (CLI) | payer MEDICARE, BC ==
--- NOTE | 2019-12-30 11:34 | CT ---
EXAMINATION TYPE: CT angio neck DATE OF EXAM: 12/29/2019 HISTORY: carotid bruit, syncope COMPARISON: Carotid ultrasound November 15, 2019 CT DLP: 169 mGycm. Automated Exposure Control for Dose Reduction was Utilized. TECHNIQUE: CTA scan of the neck is performed with IV Contrast, patient injected with 65 mL of Isovue 370, axial images are obtained, coronal and sagittal reformatted images are reviewed. Three-D recons tructed images are created on an independent workstation and reviewed. FINDINGS: Carotid/Vascular Structures: Mild to moderate peripheral calcified plaque in the aortic arch. Normal 3 vessel origins from the aortic arch with mild/moderate peripheral calcified plaque . Normal origin right common carotid artery from right brachiocephalic artery. Moderate to severe mixed plaque right proximal subclavian artery, cannot exclude significant stenosis near raw data image 176 proximal to m id clavicular level. Tortuous course to the right common carotid artery with mild peripheral calcifie d plaque mid segment. More moderate noncalcified plaque distally without significant stenosis. Correl ating with recent ultrasound there is severe calcified plaque right carotid bulb causing significant stenosis near-complete occlusion at origin of right external carotid artery. Due to presence of signi ficantly calcified plaque this is better evaluated on ultrasound. Stenosis up to 2.7 mm raw data imag e 374 noted with reconstitution of the 5.2 mm distal to this. Stenosis felt approaching but under 50% in the proximal right internal carotid artery. Remainder right internal carotid artery shows severe calcified plaque supraclinoid segment without significant stenosis. Incidental small caliber right A1 segment with improved caliber left A2 segment due to patent anterior communicating artery. Mild to moderate calcified plaque along the course of the left common carotid artery without signific ant stenosis. Tortuous course is seen. Moderate to calcified plaque left carotid bulb extends into ex ternal carotid artery causing significant stenosis and to lesser degree in the internal carotid arter y. Distal to this there is more severe calcified plaque noted but no greater than 50% stenosis. Remai nder left internal carotid artery shows moderate to severe peripheral eccentric calcified plaque supr aclinoid segment without significant stenosis. There is dominant left vertebral artery. There is occlusion or stenosis of the distal right vertebral artery. There are scattered moderate areas of calcified plaque along the course of the left vertebra l artery. There is probable significant stenosis distally near raw data image 606 right before basila r artery origins. More scattered areas of mild narrowing throughout visualized course of basilar parth ry identified. Other: There is greater than 1 cm left thyroid nodule laterally upper lobe mid pole level posterior a spect axial image 24. There is multilevel disc space narrowing of the cervical spine greatest C5-C6 a nd C6-C7 levels. Multilevel uncovertebral facet degenerative changes bilaterally. Mild emphysematous change and visualized upper lungs. IMPRESSION: 1. Confirmation of severe calcified plaque bilateral carotid bulb level. Confirmation of significant stenosis in bilateral external carotid arteries. There is however no significant stenosis greater smitha n 50% in either internal carotid artery with slightly more prominent stenosis or findings noted in th e proximal right internal carotid artery versus the opposite left side. 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
== END | disposition home or self-care (01) ==
LOC: RADCTMAIN 14:28
PROVIDERS: ATTEND Internal Medicine Interventional Cardiology
DX: I65.23 Occlusion and stenosis of bilateral carotid arteries (principal)
CPT/HCPCS: 82565; 84520; 70498; 36415; Q9967

== ENCOUNTER → 2021-10-31 | Outpatient (CLI) | payer MEDICARE, BC ==
--- NOTE | 2021-10-31 15:41 | US ---
EXAMINATION TYPE: US carotid duplex BILAT DATE OF EXAM: 10/31/2021 COMPARISON: 11/15/2019 CLINICAL HISTORY: 89-year-old male I65.23 OCCLUSION STENOSIS CAROTID ARTERY. Stenosis. No HTN. Poor historian. TECHNIQUE: Carotid duplex ultrasound examination. Indirect Doppler criteria was utilized. FINDINGS: EXAM MEASUREMENTS: RIGHT: Peak Systolic Velocity (PSV) cm/sec ----- Right CCA: 46.2 ----- Right ICA: 129.0 ----- Right ECA: 151 ICA/CCA ratio: 2.8 RIGHT: End Diastole cm/sec ----- Right CCA: 8.7 ----- Right ICA: 17.2 ----- Right ECA: 0.0 LEFT: Peak Systolic Velocity (PSV) cm/sec ----- Left CCA: 95.1 ----- Left ICA: 131.0 ----- Left ECA: 238.0 ICA/CCA ratio: 1.4 LEFT: End Diastole cm/sec ----- Left CCA: 11.5 ----- Left ICA: 22.1 ----- Left ECA: 0.0 VERTEBRALS (direction of flow): Right Vertebral: Antegrade Left Vertebral: Antegrade Rhythm: Normal Director Cpg notes: Plaque in bilateral CCA and bulbs. Left ICA significant stenosis. Elevated bilat eral ECA, right proximal ICA and left distal ICA velocities. IMPRESSION: Moderate atherosclerotic changes at the bilateral bifurcations. Peak systolic velocities within both ICAs are slightly increased but other parameters fall within normal limits. There may be a mild, less than 50% stenosis at the carotid bulbs. Criteria for Assigning % of Stenosis / Diameter reduction (Estimation based on the indirect measurements of the internal carotid artery velocities (ICA PSV). 1. Normal (no stenosis)=ICA PSV < 125 cm/s: ratio < 2.0: ICA EDV<40 cm/s. 2. Less than 50% stenosis=ICA PSV < 125 cm/s: ratio < 2.0: ICA EDV<40 cm/s. 3. 50 to 69% stenosis=ICA PSV of 125 to 230 cm/s: ration 2.0 ? 4.0: ICA EDV 40-100 cm/s. 4. Greater than 70% stenosis to near occlusion= ICA PSV > 230 cm/s: ratio > 4.0: ICA EDV > 100 cm/s. 5. Near occlusion= ICA PSV velocities may be low or undetectable: variable ratio and ICA EDV. 6. Total occlusion=unable to detect flow.
== END | disposition home or self-care (01) ==
LOC: RADUSWWP 13:39
PROVIDERS: ATTEND Family Medicine
DX: I65.23 Occlusion and stenosis of bilateral carotid arteries (principal)
CPT/HCPCS: 93880